=== PATIENT | female | born 1975 | race Caucasian/White ===

== ENCOUNTER 2019-08-16 09:02 | Outpatient (CLI) | payer BC ==
--- NOTE | 2019-07-31 10:22 | NUR ---
LEFT MSG ON HER HUSBANDS PHONE TO CALL US BACK. LEFT INSTRUCTIONS ONHER HUSBANDS PHONE REGARDING THE PROCEDURE.
[2019-08-16] VITALS (9 sets, daily range): BP systolic 114–143; BP diastolic 68–88; PULSE 80–102
[~2019-08-16] VITALS: Ht 157.5 cm; Wt 108.4 kg
[~2019-08-16 09:02] MED LIST: AMBIEN 5MG TABLE5 MG PO; ATIVAN0.5 MG PO; CEPHALEXIN500 M1 PO; CLEOCIN HCL300 MG PO; COUMADIN 5MG5 MG/TAB PO; COUMADIN 77.5 MG/TAB PO; COUMADIN6 MG PO; COUMADIN7.5 MG PO; GRALISE300 MG PO; HCTZ 25MG TAB25 MG PO; HCTZ 25MG25 MG PO; IRON TABLETS325 MG PO; LORTAB 5/500 501 TAB PO; LOVENOX120 MG/0.8 SC; LOVENOX150 MG/ML SC; MELATONIN3 M1 PO; MULTIVITAMIN FO1 CAP PO; PERCOCET 325 MG1 TA2 PO; PRILOSEC 20MG20 MG PO; PRINIVIL10 MG PO; WELLBUTRIN SR150 M1 PO; WOMEN'S DAILY F1 TAB PO; XARELTO20 MG PO
--- NOTE | 2019-08-16 10:35 | NUR ---
Pt to EU 9 per cart s/p LP. Pt resting well. Pt reports H/A is the same as before LP.
[2019-08-16 11:04] LABS: GLUCOSE,CSF 54 mg/dL (40-70); TOTAL PROTEIN,CSF 42 mg/dL (15-45)
[2019-08-16 11:59] LABS: CSF APPEARANCE CLEAR; CSF COLOR COLORLESS; CSF RBC 0 /mm3 (0-0)
[2019-08-16 12:00] LABS: CSF MONONUCLEAR 85 % (70-100)
[2019-08-16 12:01] LABS: CSF POLYMORPHONUCLEAR 15 % (0-6)
--- NOTE | 2019-08-16 12:35 | NUR ---
Pt has ambulated, voided and shawna PO intake s n/v.
--- NOTE | 2019-08-16 13:35 | NUR ---
Pt discharged per w/c by nurse with .
== END 2019-08-16 17:43 | disposition home or self-care (01) ==
LOC: COL.RAD 09:02
PROVIDERS: Psychiatry & Neurology Neurology
DX: R90.89 Other abnormal findings on diagnostic imaging of central nervous system (principal); R20.0 Anesthesia of skin; R20.2 Paresthesia of skin

== ENCOUNTER 2020-09-04 12:21 | Observation (INO) | payer BC ==
[~2020-09-04] VITALS: Ht 157.5 cm; Wt 104.9 kg
[~2020-09-04 12:21] MED LIST changes: +EFFEXOR XR75 MG/CAP PO; +NEURONTIN300 MG/CAP PO; +PREDNISONE20 MG PO; +TOPROL XL 50MG50 MG PO
[2020-09-04 15:54] VITALS: BP 157/73; PULSE 88; TEMP 98.4
[2020-09-04] MEDS ORDERED: TYLENOL #21 TAB PO (16:14)
[2020-09-04] MEDS ORDERED: ALBUTEROL S0.4 MG/ML PO (16:18)
--- NOTE | 2020-09-04 16:30 | NUR ---
Pt ambulatory to room 319 at this time. She is A/O x4. Her breathing is even and unlabored on RA. Pt denies any pain. POC discussed with patient who verbalizes understanding. Attempted IV x2, supervisor rides to attempt IV site. No needs at this time. Call light within reach.
[2020-09-04 19:36] VITALS: BP 140/77; PULSE 83; TEMP 98.2
--- NOTE | 2020-09-04 20:34 | NUR ---
Resting in bed. Assessment complete. Lungs clear. Heart sounds normal. Bowels active x4. Pulses present throughout. Bilateral lower ext edema +1. noted. No IV access at this time. Denies pain. Denies needs. Call light in reach.
[2020-09-04 22:57] LABS: MEAN CELL VOLUME 82 fl (80.0-100.0); MEAN CORPUSCULAR HGB CONC 30 g/dl (33.0-37.0); MEAN PLATELET VOLUME 9.3 fl (7.4-10.4); PLATELET COUNT 435 K/mm3 (130-400); REDCELL DISTRIBUTION WIDTH-CV 15.8 % (11.5-14.5)
[2020-09-04 23:01] LABS: CALCIUM 9.1 mg/dL (8.4-10.2); CREATININE, serum 0.78 (0.52-1.25); POTASSIUM 3.5 mmol/L (3.4-5.0)
[2020-09-04 23:02] LABS: HEMATOCRIT 33.5 % (37.0-47.0); HEMOGLOBIN 9.9 g/dl (12.5-16.0); MEAN CORPUSCULAR HEMOGLOBIN 24 pg (27.0-31.0)
[2020-09-04 23:14] LABS: INR 1.1 (0.8-3.0); PROTHROMBIN TIME 12.8 SECONDS (9.7-12.8)
[2020-09-04 23:17] LABS: PARTIAL THROMBOPLASTIN TIME 33.9 SECONDS (26.0-37.0)
[2020-09-04 23:42] VITALS: BP 137/74; PULSE 89; TEMP 98.1
--- NOTE | 2020-09-04 23:44 | NUR ---
Resting in bed. Denies needs. Denies pain. Call light in reach.
[2020-09-05] VITALS (14 sets, daily range): BP systolic 110–152; BP diastolic 55–85; PULSE 78–108; TEMP 98–98.7
--- NOTE | 2020-09-05 03:23 | NUR ---
Patient reported headache. Spoke with Dr. Baer. Order given for tylenol 650mg. Provided to patient. Denies other needs. Call light in reach.
--- NOTE | 2020-09-05 05:06 | NUR ---
Patient required x1 dose of tylenol for a headache and x1 dose of benadryl for sleep throughout night. Otherwise uneventful night. Resting in bed this AM. Call light in reach.
--- NOTE | 2020-09-05 07:00 | NUR ---
Report given to REAGAN Darling
--- NOTE | 2020-09-05 14:46 | NUR ---
PATIENT TO SPRAY I PAINTER AT THIS TIME WITH
--- NOTE | 2020-09-05 15:07 | NUR ---
SEE MEREGE FOR ALL MEDICATION ADMIN. TIMES, INTRA AND POST SEDATION ASSESSMENTS
--- NOTE | 2020-09-05 16:22 | NUR ---
PT TO ROOM 319 POST PROCEEDURE VSS, BAND TO RWRIST INFLATED TO 16 MLS. CDI PT IS A/O X3. IN ROOM @ 1530.
--- NOTE | 2020-09-05 16:51 | NUR ---
Diagnostic Radiologic Technologist met with patient to discuss discharge planning. Patient lives in [place] with her , Eduardo (ph#[phone]) and their pets. Patient sees Dr. Pinky Strong for primary care in [place]. Patient obtains medications from [facility] or [facility] without difficulties. Patient does not use any DME and reports independence with [facility]. Patient states her is her DPOA-HC. 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 Patient plans to return home upon discharge and SW will follow as needed.
--- NOTE | 2020-09-05 18:15 | NUR ---
5 MLS REMOVED FROM RADIAL BAND NO BLEEDING NOTED.
--- NOTE | 2020-09-05 18:47 | NUR ---
REPORT TO CAROLYNN KIRK.
--- NOTE | 2020-09-05 19:24 | NUR ---
Resting in bed. Assessment complete. Lungs clear. Heart sounds tachy-pulse 100-107. Bowels active x4. Pulses present throughout. No edema noted. INT left forearm without complications. Right radial site CDI with ecchymosis present. Patient denies pain at site. Will have house supervisior review. Denies pain. Denies needs at this time. Will closely monitor.
--- NOTE | 2020-09-05 21:10 | NUR ---
Discharge instructions reviewed with patient. INT left forearm removed. Telemetry removed. All questions answered. Right radial site checked. No changes from previous assessment. Patient taken via wheelchair to ER doors and left with .
== END 2020-09-05 21:10 | disposition home or self-care (01) ==
LOC: MEDICAL 12:21
PROVIDERS: ADMIT Internal Medicine Interventional Cardiology
DX: R00.2 Palpitations (principal); R94.39 Abnormal result of other cardiovascular function study; I10 Essential (primary) hypertension; E78.5 Hyperlipidemia, unspecified; R60.0 Localized edema; Z20.828 Contact with and (suspected) exposure to other viral communicable diseases; Z79.01 Long term (current) use of anticoagulants; Z79.899 Other long term (current) drug therapy; Z86.19 Personal history of other infectious and parasitic diseases; Z86.718 Personal history of other venous thrombosis and embolism; Z91.041 Radiographic dye allergy status; Z87.891 Personal history of nicotine dependence
CPT/HCPCS: G0378; J1200; J1644